=== PATIENT | male | born 1985 | race Caucasian/White ===

== ENCOUNTER 2017-07-02 19:48 | Emergency (ER) | payer BC ==
[~2017-07-02 19:48] MED LIST: LORT5TAB PO
[2017-07-02 19:49] VITALS: BP 98/58; PULSE 82; RESP 18; TEMP 98.8; O2SAT 97
[2017-07-03] MEDS ORDERED: CETI10 PO (09:13)
[2017-07-09] MEDS ORDERED: CIPR0.3S2 LEFT EYE (08:31)
[2017-07-24] MEDS ORDERED: NEOM0.1S4 LEFT EYE (08:45)
== END 2017-07-02 20:33 | disposition left against medical advice (07) ==
LOC: NED 19:48
DX: H57.12 Ocular pain, left eye (principal); Z53.21 Procedure and treatment not carried out due to patient leaving prior to being seen by health care provider
CPT/HCPCS: 99281

== ENCOUNTER 2017-07-02 20:54 | Emergency (ER) | payer BC ==
[~2017-07-02] VITALS: Ht 190.5 cm; Wt 87.4 kg
[2017-07-02] MEDS ORDERED: PROPARACAINE HCL 0.5% OPHT SOLN 15 ML BTL EACH EYE ONE (21:00)
[2017-07-02 21:08] VITALS: BP 147/91; PULSE 88; RESP 17; TEMP 98.3; O2SAT 98
--- NOTE | 2017-07-02 21:22 | PD ---
HPI Chief Complaint: Foreign Body Time Seen by Provider: 20:57 Travel History International Travel<30 days: No Contact w/Intl Traveler<30days: No Traveled to known affect area: No History of Present Illness HPI This is a 31-year-old male who presents to the emergency department having been jackhammering tile when he felt like a piece of tile when it his left eye. He had severe pain following the episode and a foreign body sensation in the eye. He has a little bit of blurry vision in the left eye, constant. He has no other injuries. The injury occurred about 2 hours prior to arrival. He did go to another emergency department but the wait was too long so he came here. [facility] Past Medical History Diminished Hearing: No Shingles: Yes Tetanus Vaccination: > 5 Years Influenza Vaccination: No Past Surgical History Oral Surgery: Yes (JAW ALIGNMENT) Other Surgery: Yes (HERNIA REPAIR) Social History Alcohol Use: Yes (2-3 beers daily) Tobacco Use: No Substance Use: No Allergies-Medications (Allergen,Severity, Reaction): Coded Allergies: No Known Allergies (Unverified , 07/02/17) Reported Meds & Prescriptions Reported Meds & Active Scripts Active No Active Prescriptions or Reported Medications Review of Systems Except as stated in HPI: all other systems reviewed are Neg Physical Exam Narrative GENERAL:Well appearing, no acute distress SKIN: Focused skin assessment warm and dry. HEAD: Atraumatic. Normocephalic. EYES: Area of dark subconjunctival hemorrhage along the nasal aspect of the left eye. Normal-appearing pupil which is reactive. No obvious hyphema. Some fluoroscein uptake over the cornea and some over the area of subconjunctival hemorrhage. No obvious Adela sign. ENT: Moist mucous membranes NECK: Trachea midline. CARDIOVASCULAR: Regular rate and rhythm. No murmur appreciated. RESPIRATORY: Clear to auscultation. Breath sounds equal bilaterally. GASTROINTESTINAL: Abdomen soft, non-tender, nondistended. MUSCULOSKELETAL: No obvious deformities. NEUROLOGICAL: Awake and alert. No obvious cranial nerve deficits. Moving all extremities. PSYCHIATRIC: Appropriate mood and affect; insight and judgment normal. Data Data Last Documented VS Vital Signs Date Time Temp Pulse Resp B/P Pulse Ox O2 Delivery O2 Flow Rate FiO2 07/02/17 22:04 74 18 123/63 99 Room Air 07/02/17 21:08 98.3 Orders Proparacaine 0.5% Opth Soln (Alcaine 0.5 (07/02/17 21:00) Ct Facial Bones W/O Iv Cont (07/02/17 ) MDM Medical Decision Making Medical Screen Exam Complete: Yes Emergency Medical Condition: Yes Interpretation(s) Last [address] 07/02/17 0000 Signed Impressions: Service Date/Time: Sunday, July 02, 2017 21:49 - CONCLUSION: 1. No acute findings. Specifically no foreign body is identified in the left orbit. Moe Cowart MD Differential Diagnosis foreign body left eye, scleral laceration, open globe injury Narrative Course This is a 31-year-old male who presents to the emergency department having been jackhammering tile when he felt something go in his eye. He has an area of subconjunctival hemorrhage with some floor seen uptake over it along the medial aspect of the eye. His pupil is normal shape. He has no Adela sign on exam. His vision is 20/30 in the affected eye. A CT scan demonstrates no foreign body. I spoke to Dr. Gómez and based on these findings she felt comfortable seeing him first thing in the morning in her office. I asked the family to call at 7 AM. He will be placed in an eye shield overnight for protection. Diagnosis Primary Impression: Eye injury Qualified Code: S05.92XA - Left eye injury, initial encounter Referrals: Constance Gómez MD Patient Instructions: General Instructions Additional Instructions: Follow-up first thing in the morning at Dr. Gómez's office. If you develop worsening vision or severe pain return to the emergency department. Keep your eye shield in place. Med/Other Pt SpecificInfo: No Change to Meds Scripts No Active Prescriptions or Reported Meds Disposition: 01 DISCHARGE HOME Condition: Stable Milena Cheng MD Jul 02, 2017 21:22
[2017-07-02 22:04] VITALS: BP 123/63; PULSE 74; RESP 18; O2SAT 99
--- NOTE | 2017-07-02 22:16 | RADRPT ---
EXAM DATE/TIME: 07/02/2017 21:49 [facility] COMPARISON: No previous studies available for comparison. INDICATIONS : Evaluate for foreign body in left eye. Blurred vision. RADIATION DOSE: 28.61 CTDIvol (mGy) ; High dose protocol MEDICAL HISTORY : None SURGICAL HISTORY : None. ENCOUNTER: Initial ACUITY: 1 day PAIN SCORE: 4/10 LOCATION: Left orbit TECHNIQUE: Volumetric scanning of the facial bones was performed. Using automated exposure control and adjustme nt of the mA and/or kV according to patient size, radiation dose was kept as low as reasonably achiev able to obtain optimal diagnostic quality images. DICOM format image data is available electronicall y for review and comparison. FINDINGS: ORBITS: The orbital and infraorbital osseous structures are intact. The retroconal structures have a normal configuration. No radiopaque foreign bodies are seen. NASAL BONE: The nasal bone and maxillary spine are intact ZYGOMATIC ARCHES: Symmetric without evidence of fracture. SINUSES: The maxillary, ethmoid and frontal sinuses are intact. No air-fluid levels seen. NASAL CAVITY: The nasal septum is intact and midline. The lacrimal ducts are intact. SOFT TISSUES: No radiopaque foreign bodies seen. No soft-tissue swelling is seen. INTRACRANIAL: No intracranial air seen. CRIBIFORM PLATE: Grossly intact. CONCLUSION: 1. No acute findings. Specifically no foreign body is identified in the left orbit. Moe Cowart MD on July 02, 2017 at 22:12 Board Certified Radiologist. This report was verified electronically.
[2017-07-03] MEDS ORDERED: CETI10 PO (09:13)
[2017-07-09] MEDS ORDERED: CIPR0.3S2 LEFT EYE (08:31)
== END 2017-07-02 22:57 | disposition home or self-care (01) ==
LOC: PHED 20:54
DX: S05.92XA Unspecified injury of left eye and orbit, initial encounter (principal); W22.8XXA Striking against or struck by other objects, initial encounter; Y93.H3 Activity, building and construction
CPT/HCPCS: 70486